=== PATIENT | female | born 1950 | race Caucasian/White ===

== ENCOUNTER 2024-12-29 10:47 | Day surgery (SDC) | payer MEDICARE ==
[2024-12-29 11:54] LABS: Hematocrit 40.9 % (34.9-44.5); Hemoglobin 13.0 g/dL (12.0-15.5)
[2024-12-29 12:13] LABS: Anion Gap 11 mmol/L (10-20); BUN (Urea Nitrogen) 8 mg/dL (9.8-20.1); Calc. Creatinine Clearance 0 mL/min (70-130); Calcium 9.8 mg/dL (7.8-10.44); Carbon Dioxide 27 mmol/L (23-31); Chloride 107 mmol/L (98-107); Glucose 95 mg/dL (83-110); Potassium 3.9 mmol/L (3.5-5.1); Sodium 141 mmol/L (136-145)
[2024-12-29] MEDS ORDERED: Rocuronium Bromide 10 MG/ML (10ML VIAL) ONE (12:30)
[2024-12-29] MEDS ORDERED: Lidocaine 1% w/Epinephrine 1:200K 30 ML VIAL ONE (12:30)
[2024-12-29] MEDS ORDERED: Ondansetron PF 4 MG/2 ML Vial ONE (12:30)
[2024-12-29] MEDS ORDERED: SUGAMMADEX SODIUM 200 MG/2 ML VIAL ONE (12:30)
[2024-12-29] MEDS ORDERED: PROPOFOL 40 ML ONE (12:30)
[2024-12-29] MEDS ORDERED: Lidocaine 1% PF 5 ML VIAL ONE (12:30)
[2024-12-29] MEDS ORDERED: AFRIN NASAL MIST 15 ML BOT ONE (12:31)
[2024-12-29] MEDS ORDERED: Bacitracin 1 PK ONE (12:53)
[2024-12-29] MEDS ORDERED: Hydrocodone-Acetamin 15 ML UDCUP ONE (14:06)
== END 2024-12-29 14:45 | disposition home or self-care (01) ==
LOC: CSHSDC/OP 10:47 → CSHSDC 14:45
PROVIDERS: ATTEND Specialist
PROC: 0NSBXZZ Reposition Nasal Bone, External Approach (ICD-10-PCS; principal; 2024-12-29)
PROC: 09SM0ZZ Reposition Nasal Septum, Open Approach (ICD-10-PCS; 2024-12-29)
DX: S02.2XXA Fracture of nasal bones, initial encounter for closed fracture (principal); J34.2 Deviated nasal septum; Z98.49 Cataract extraction status, unspecified eye; Z85.828 Personal history of other malignant neoplasm of skin; Z88.5 Allergy status to narcotic agent; W19.XXXA Unspecified fall, initial encounter
CPT/HCPCS: 21320; 30520; 80048; 85014; 85018; 93005; J1100; J2704; J3010; 36415; 93010